=== PATIENT | male | born 1995 | race Hispanic/Latino ===

== ENCOUNTER 2016-07-31 17:27 | Emergency (ER) | payer OTHER ==
[~2016-07-31] VITALS: Ht 175.3 cm; Wt 81.0 kg
[2016-07-31 17:41] VITALS: BP 148/90
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
[2016-07-31 19:49] VITALS: BP 121/71; PULSE 81; RESP 18; O2SAT 99
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
[2016-07-31 20:59] VITALS: BP 115/65; PULSE 75; RESP 16; O2SAT 99
== END 2016-07-31 21:00 | disposition home or self-care (01) ==
LOC: SED 17:27
DX: S60.221A Contusion of right hand, initial encounter (principal); V43.52XA Car driver injured in collision with other type car in traffic accident, initial encounter; Y93.9 Activity, unspecified; Y92.410 Unspecified street and highway as the place of occurrence of the external cause; Y99.8 Other external cause status; Z87.891 Personal history of nicotine dependence